=== PATIENT | male | born 1960 | race Caucasian/White ===

== ENCOUNTER 2016-08-25 11:28 | Emergency (ER) | payer OTHER ==
[~2016-08-25] VITALS: Ht 175.2 cm; Wt 86.2 kg
[~2016-08-25 11:28] MED LIST: ASPIR-LOW81 MG PO; CIALIS20 MG PO; SIMVASTATIN40 MG PO
[2016-08-25] MEDS ORDERED: CIALIS2.5 MG PO (11:36)
[2016-08-25] MEDS ORDERED: MINOCYCLINE HC100 MG PO (11:36)
[2016-08-25] MEDS ORDERED: VITAMIN D1000 IU PO (11:37)
[2016-08-25] MEDS ORDERED: LIPITOR40 MG PO (11:37)
[2016-08-25] MEDS ORDERED: PREDNISONE10 MG PO (11:50)
== END 2016-08-25 12:01 | disposition home or self-care (01) ==
LOC: ED 11:28
DX: L25.9 Unspecified contact dermatitis, unspecified cause (principal); Z96.641 Presence of right artificial hip joint; Z98.890 Other specified postprocedural states; Z79.82 Long term (current) use of aspirin; Z79.899 Other long term (current) drug therapy

== ENCOUNTER → 2019-01-16 | Outpatient (CLI) | payer OTHER ==
[~2019-01-16] MED LIST changes: +CIALIS2.5 MG PO; +LIPITOR40 MG PO; +MINOCYCLINE HC100 MG PO; +PREDNISONE10 MG PO; +VITAMIN D1000 IU PO
== END | disposition home or self-care (01) ==
LOC: RAD 10:21
DX: M19.041 Primary osteoarthritis, right hand (principal); M79.89 Other specified soft tissue disorders